=== PATIENT | female | born 1975 | race Caucasian/White ===

== ENCOUNTER 2017-03-18 17:22 | Emergency (ER) | payer OTHER, MEDICAID ==
[~2017-03-18] VITALS: Ht 180.3 cm; Wt 97.5 kg
[2017-03-18] MEDS ORDERED: XANAX 0.25 MG0.25 MG PO (17:32)
[2017-03-18] MEDS ORDERED: CLONAZEPAM 0.50.5 M1 PO (17:32)
[2017-03-18] MEDS ORDERED: ABILIFY10 MG PO (17:32)
[2017-03-18] MEDS ORDERED: LAMICTAL100 MG PO (17:32)
[2017-03-18] MEDS ORDERED: XARELTO1 EACH PO (17:33)
[2017-03-18] MEDS ORDERED: NORVASC2.5 MG PO (17:33)
[2017-03-18] MEDS ORDERED: LEXAPRO 10 MG T10 M2 PO (17:33)
[2017-03-18 18:12] VITALS: BP 132/87
== END 2017-03-18 18:14 | disposition home or self-care (01) ==
LOC: M.ERS 17:22
DX: F41.9 Anxiety disorder, unspecified (principal); I10 Essential (primary) hypertension; F31.9 Bipolar disorder, unspecified; Z88.5 Allergy status to narcotic agent; Z88.0 Allergy status to penicillin